=== PATIENT | female | born 1995 | race Caucasian/White ===

== ENCOUNTER 2017-10-13 00:46 | Emergency (ER) | payer OTHER, SELFPAY ==
[2017-10-13 01:28] LABS: BHCG - Serum Negative (NEGATIVE); Pregs Control Background? CLEAR/WHITE (CLR/WHITE); Pregs Control Bar Appear? YES (CONTROL BAR)
[2017-10-13] MEDS ORDERED: Ketorolac Tromethamine 30 MG/ML VIAL ONE (02:43)
[2017-10-13] MEDS ORDERED: Fentanyl 100 MCG/2 ML VIAL ONE (02:57)
[2017-10-13] MEDS ORDERED: CEFAZOLIN 1 GM VIAL ONE (02:57)
--- NOTE | 2017-10-13 11:43 | RAD ---
LEFT KNEE 4 VIEWS: DATE: 10/13/17. FINDINGS: No fracture, dislocation or joint effusion was seen. All bones appeared intact. IMPRESSION: No acute finding. POS: HOME
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
== END 2017-10-13 03:30 | disposition short-term general hospital (02) ==
LOC: BURERS 00:46
DX: S02.652A Fracture of angle of left mandible, initial encounter for closed fracture (principal); F90.9 Attention-deficit hyperactivity disorder, unspecified type; Z79.899 Other long term (current) drug therapy; V86.69XA Passenger of other special all-terrain or other off-road motor vehicle injured in nontraffic accident, initial encounter
CPT/HCPCS: 70486; 72125; 80307; 84703; 96372; 96374; 96375; G0390; J0690; J1885; J3010